=== PATIENT | female | born 1960 | race Caucasian/White ===

== ENCOUNTER 2016-08-13 07:27 | Emergency (ER) | payer MEDICAID, OTHER ==
[~2016-08-13] VITALS: Ht 157.5 cm; Wt 60.0 kg
[~2016-08-13 07:27] MED LIST: BUME0.5T; CITA10SO PO; DIAZ10 PO; SEROQUIL PO; TRAZ100T50 PO
[2016-08-13 07:30] VITALS: BP 175/86; PULSE 90; RESP 16; O2SAT 97
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
[2016-08-13] MEDS ORDERED: CELE20TA PO (07:36)
[2016-08-13] MEDS ORDERED: TYLETAB34 PO (07:40)
[2016-08-13] MEDS ORDERED: DIAZ10 PO (07:40)
[2016-08-13] MEDS ORDERED: IBUPROFEN 600 MG TAB PO ONE (08:00)
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
[2016-08-13] MEDS ORDERED: IBUP400T20 PO (09:02)
[2016-08-13 09:25] VITALS: RESP 16
== END 2016-08-13 09:43 | disposition home or self-care (01) ==
LOC: NEPC 07:27
DX: S00.93XA Contusion of unspecified part of head, initial encounter (principal); M47.812 Spondylosis without myelopathy or radiculopathy, cervical region; V78.4XXA Person boarding or alighting from bus injured in noncollision transport accident, initial encounter; Y93.01 Activity, walking, marching and hiking; Y92.811 Bus as the place of occurrence of the external cause; J45.909 Unspecified asthma, uncomplicated; F17.210 Nicotine dependence, cigarettes, uncomplicated
CPT/HCPCS: 70450; 72125

== ENCOUNTER 2016-11-24 00:45 | Emergency (ER) | payer MEDICAID ==
[~2016-11-24] VITALS: Ht 157.5 cm; Wt 48.0 kg
[~2016-11-24 00:45] MED LIST changes: -BUME0.5T; +CELE20TA PO; -CITA10SO PO; +IBUP400T20 PO; -SEROQUIL PO; -TRAZ100T50 PO; +TYLETAB34 PO
[2016-11-24 00:47] VITALS: BP 124/76; PULSE 83; RESP 16; TEMP 98.7; O2SAT 97
== END 2016-11-24 01:30 | disposition left against medical advice (07) ==
LOC: NEDAMB 00:45
DX: Z02.89 Encounter for other administrative examinations (principal)
CPT/HCPCS: 99281

== ENCOUNTER 2017-01-01 00:16 | Emergency (ER) | payer MEDICAID ==
[~2017-01-01] VITALS: Ht 160 cm; Wt 46.0 kg
[2017-01-01 00:23] VITALS: BP 113/82; PULSE 92; RESP 18; TEMP 98.1; O2SAT 100
[2017-01-01] MEDS ORDERED: SODIUM CHLOR 0.9% 1000 ML INJ 1,000 ML IV ONE (00:45)
[2017-01-01] MEDS ORDERED: THIAMINE INJ 100 MG in SODIUM CHLORIDE 0.9% INJ 100 ML IV ONE (00:45)
--- NOTE | 2017-01-01 01:22 | RADRPT ---
EXAM DATE/TIME: 01/01/2017 00:51 [facility] COMPARISON: No previous studies available for comparison. INDICATIONS : Fall. Chest pain. MEDICAL HISTORY : None. SURGICAL HISTORY : None. ENCOUNTER: Initial ACUITY: 1 day PAIN SCORE: 0/10 LOCATION: Bilateral chest FINDINGS: A single view of the chest demonstrates the lungs to be symmetrically aerated without evidence of mas s, infiltrate or effusion. The cardiomediastinal contours are unremarkable. Osseous structures are intact. CONCLUSION: No evidence of acute cardiopulmonary disease. Harrison Duenas MD on January 01, 2017 at 1:20 Board Certified Radiologist. This report was verified electronically.
--- NOTE | 2017-01-01 01:23 | RADRPT ---
EXAM DATE/TIME: 01/01/2017 00:56 [facility] COMPARISON: No previous studies available for comparison. INDICATIONS : Fall. MEDICAL HISTORY : None. SURGICAL HISTORY : None. ENCOUNTER: Initial ACUITY: 1 day PAIN SCORE: 0/10 LOCATION: Bilateral pelvis FINDINGS: A single frontal view of the pelvis demonstrates no evidence of fracture. The bony pelvic ring is in tact. Bony mineralization is normal. The soft tissues are intact. CONCLUSION: Intact pelvis. Harrison Duenas MD on January 01, 2017 at 1:21 Board Certified Radiologist. This report was verified electronically.
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
[2017-01-01 01:35] VITALS: BP 113/82; PULSE 90; RESP 18; TEMP 98.1; O2SAT 95
[2017-01-01 01:42] LABS: AUTOMATED NEUTROPHIL # 2.7 TH/MM3 (1.8-7.7); BASOPHIL # 0.1 TH/MM3 (0-0.2); BASOPHIL % 1.4 % (0.0-2.0); EOSINOPHIL # 0.1 TH/MM3 (0-0.4); EOSINOPHIL % 1.6 % (0.0-4.0); HEMO FLAGS DIFF FINAL; LYMPHOCYTE # 2.7 TH/MM3 (1.0-4.8); MEAN CELL VOLUME 88.3 FL (80.0-100.0); MEAN CORPUSCULAR HEMOGLOBIN 29.8 PG (27.0-34.0); MEAN CORPUSCULAR HGB CONC 33.7 % (32.0-36.0); PLATELET COUNT 275 TH/MM3 (150-450); RED BLOOD COUNT 4.41 MIL/MM3 (4.00-5.30); RED CELL DISTRIBUTION WIDTH 14.8 % (11.6-17.2); WHITE BLOOD COUNT 5.9 TH/MM3 (4.0-11.0)
[2017-01-01 01:53] LABS: APTT (PATIENT) 25.9 SEC (24.3-30.1); INTERNATIONAL NORMALIZED RATIO 1.1 RATIO; PROTHROMBIN TIME - PATIENT 11.8 SEC (9.8-11.6)
[2017-01-01 01:56] LABS: POTASSIUM 3.4 MEQ/L (3.5-5.1)
[2017-01-01] MEDS ORDERED: IOHEXOL 350 MG/ML 10 ML VIAL (for RAD DIAG) IV ONE (02:36)
--- NOTE | 2017-01-01 02:52 | RADRPT ---
EXAM DATE/TIME: 01/01/2017 02:33 [facility] COMPARISON: CT BRAIN W/O CONTRAST, August 13, 2016, 8:19. INDICATIONS : Trauma; fall. ETOH RADIATION DOSE: 41.39 CTDIvol (mGy) MEDICAL HISTORY : Cerebrovascular disease. Diverticulitis. SURGICAL HISTORY : Appendectomy. Hysterectomy. ENCOUNTER: Initial ACUITY: 1 day PAIN SCALE: Non-responsive LOCATION: cranial TECHNIQUE: Multiple contiguous axial images were obtained of the head. Using automated exposure control and adj ustment of the mA and/or kV according to patient size, radiation dose was kept as low as reasonably a chievable to obtain optimal diagnostic quality images. FINDINGS: CEREBRUM: The ventricles are normal for age. No evidence of midline shift, mass lesion, hemorrhage or acute in farction. No extra-axial fluid collections are seen. POSTERIOR FOSSA: The cerebellum and brainstem are intact. The 4th ventricle is midline. The cerebellopontine angle i s unremarkable. EXTRACRANIAL: The visualized portion of the orbits is intact. SKULL: The calvaria is intact. No evidence of skull fracture. CONCLUSION: Negative noncontrast head CT. Harrison Duenas MD on January 01, 2017 at 2:49 Board Certified Radiologist. This report was verified electronically.
--- NOTE | 2017-01-01 03:01 | RADRPT ---
EXAM DATE/TIME: 01/01/2017 02:33 [facility] COMPARISON: CT CERVICAL SPINE W/O CONTRAST, August 13, 2016, 8:19. INDICATIONS : Trauma; fall. ETOH RADIATION DOSE: 21.27 CTDIvol (mGy) MEDICAL HISTORY : Cerebrovascular disease. Diverticulitis. SURGICAL HISTORY : Appendectomy. Hysterectomy. ENCOUNTER: Initial ACUITY: 1 day PAIN SCALE: Non-responsive LOCATION: neck TECHNIQUE: Volumetric scanning of the cervical spine was performed. Multiplanar reconstructions in the sagittal, coronal and oblique axial planes were performed. Using automated exposure control and adjustment o f the mA and/or kV according to patient size, radiation dose was kept as low as reasonably achievable to obtain optimal diagnostic quality images. FINDINGS: There are a few millimeters of chronic/degenerative retrolisthesis at C4/C5. No fracture or acute-kevin earing malalignment seen in the cervical spine. Vertebral bodies have normal height. Disc space narrowing with uncovertebral and facet osteoarthritis again noted, moderate at C4/C5 and m ild at C5/C6 and C6/C7. Subcentimeter lucency in the right side of C7 vertebral body is unchanged, mo st likely degenerative. CONCLUSION: No fracture or subluxation of the cervical spine. Chronic findings as above, unchanged. Harrison Duenas MD on January 01, 2017 at 2:56 Board Certified Radiologist. This report was verified electronically.
--- NOTE | 2017-01-01 03:02 | RADRPT ---
EXAM DATE/TIME: 01/01/2017 02:39 [facility] COMPARISON: No previous studies available for comparison. INDICATIONS : Trauma; fall. ETOH IV CONTRAST: 98 cc Omnipaque 350 (iohexol) IV ; Cumulative dose for multiple exams. RADIATION DOSE: 4.83 CTDIvol (mGy) ; Combined studies - Thorax/Abdomen/Pelvis MEDICAL HISTORY : Cerebrovascular disease. Diverticulitis. SURGICAL HISTORY : Appendectomy. Hysterectomy. ENCOUNTER: Initial ACUITY: 1 day PAIN SCALE: Non-responsive LOCATION: chest TECHNIQUE: Volumetric scanning of the chest was performed. Using automated exposure control and adjustment of t he mA and/or kV according to patient size, radiation dose was kept as low as reasonably achievable to obtain optimal diagnostic quality images. FINDINGS: LUNGS: There is no consolidation or pneumothorax. No concerning pulmonary nodule is visualized. PLEURA: There is no pleural thickening or pleural effusion. MEDIASTINUM: The heart and great vessels demonstrate no acute abnormality. There is no mediastinal or hilar lymph adenopathy. AXILLAE: Within normal limits. No lymphadenopathy. SKELETAL: Within normal limits for patient age. MISCELLANEOUS: The visualized upper abdominal organs demonstrate no acute abnormality. CONCLUSION: No acute abnormality of the chest. Harrison Duenas MD on January 01, 2017 at 3:00 Board Certified Radiologist. This report was verified electronically.
--- NOTE | 2017-01-01 03:04 | RADRPT ---
EXAM DATE/TIME: 01/01/2017 02:39 [facility] COMPARISON: No previous studies available for comparison. INDICATIONS : Trauma; fall. ETOH IV CONTRAST: 98 cc Omnipaque 350 (iohexol) IV ; Cumulative dose for multiple exams. ORAL CONTRAST: No oral contrast ingested. RADIATION DOSE: 4.83 CTDIvol (mGy) ; Combined studies - Thorax/Abdomen/Pelvis MEDICAL HISTORY : Cerebrovascular disease. Diverticulitis. SURGICAL HISTORY : Appendectomy. Hysterectomy. ENCOUNTER: Initial ACUITY: 1 day PAIN SCALE: Non-responsive LOCATION: abdomen TECHNIQUE: Volumetric scanning of the abdomen and pelvis was performed. Using automated exposure control and ad justment of the mA and/or kV according to patient size, radiation dose was kept as low as reasonably achievable to obtain optimal diagnostic quality images. FINDINGS: LOWER LUNGS: The visualized lower lungs are clear. LIVER: Homogeneous density without lesion. There is no dilation of the biliary tree. Previous cholecystecto my. SPLEEN: Normal size without lesion. PANCREAS: Within normal limits. KIDNEYS: 18 mm cyst right upper pole. ADRENAL GLANDS: Within normal limits. VASCULAR: There is no aortic aneurysm. BOWEL/MESENTERY: The stomach, small bowel, and colon demonstrate no acute abnormality. There is no free intraperitone al air or fluid. ABDOMINAL WALL: Within normal limits. RETROPERITONEUM: There is no lymphadenopathy. BLADDER: No wall thickening or mass. REPRODUCTIVE: Within normal limits. INGUINAL: There is no lymphadenopathy or hernia. MUSCULOSKELETAL: There is an old, healed fracture posteriorly of the left 10th rib. No acute bony abnormality demonstr ated. CONCLUSION: No acute abnormality of the abdomen and pelvis. Harrison Duenas MD on January 01, 2017 at 3:01 Board Certified Radiologist. This report was verified electronically.
--- NOTE | 2017-01-01 03:08 | RADRPT ---
EXAM DATE/TIME: 01/01/2017 02:39 [facility] COMPARISON: No previous studies available for comparison. INDICATIONS : Trauma; fall. ETOH RADIATION DOSE: CTDIvol (mGy) ; Reconstructed from previous dataset MEDICAL HISTORY : Cerebrovascular disease. Diverticulitis. SURGICAL HISTORY : Abdominal aortic aneurysm repair. Hysterectomy. ENCOUNTER: Initial ACUITY: 1 day PAIN SCALE: Non-responsive LOCATION: upper back TECHNIQUE: Volumetric scanning of the thoracic spine was performed. Multiplanar reconstructions in the sagittal , coronal and oblique axial planes were performed. Using automated exposure control and adjustment o f the mA and/or kV according to patient size, radiation dose was kept as low as reasonably achievable to obtain optimal diagnostic quality images. FINDINGS: Slight gradual dextro convex curvature noted of the thoracic spine. The thoracic kyphosis is also sli ghtly exaggerated. There are no subluxations. No cortical break or trabecular disruption. Mild disc space narrowing seen essentially throughout. Small, chronic Schmorl's node changes are seen at each level from T7/T8-T12/L1. There is a small, broad but mainly right paracentral disc osteophyt e complex at T11/T12, combined with mild to moderate facet osteoarthritis contributes to mild to mode rate right and mild left foraminal stenosis. There is mild to moderate spinal stenosis at this level as well, eccentric towards the right. CONCLUSION: 1. No fracture or subluxation of the thoracic spine. 2. Degenerative changes as above. Right paracentral disc osteophyte complex and facet osteoarthritis at T11/T12 contribute to mild to moderate spinal stenosis and mild to moderate right, mild left violet inal stenosis. Harrison Duenas MD on January 01, 2017 at 3:03 Board Certified Radiologist. This report was verified electronically.
[2017-01-01 03:11] VITALS: BP 110/63; PULSE 87; RESP 18; O2SAT 95
--- NOTE | 2017-01-01 03:11 | RADRPT ---
EXAM DATE/TIME: 01/01/2017 02:39 [facility] COMPARISON: No previous studies available for comparison. INDICATIONS : Trauma; fall. RADIATION DOSE: CTDIvol (mGy) ; Reconstructed from previous dataset MEDICAL HISTORY : Cerebrovascular disease. Diverticulitis. SURGICAL HISTORY : Appendectomy. Hysterectomy. ENCOUNTER: Initial ACUITY: 1 day PAIN SCALE: Non-responsive LOCATION: lower back TECHNIQUE: Volumetric scanning of the lumbar spine was performed. Multiplanar reconstructions in the sagittal, coronal and oblique axial planes were performed. Using automated exposure control and adjustment of the mA and/or kV according to patient size, radiation dose was kept as low as reasonably achievable t o obtain optimal diagnostic quality images. FINDINGS: No subluxation of the lumbar spine. No cortical break or trabecular disruption. Vertebral bodies have normal height. Chronic Schmorl's node changes are seen of the superior endplates of L1 and L3 and th e inferior endplate of L2. Multilevel disc space narrowing noted, moderate at L3/L4 and L4/L5, mild at the other levels. There i s mild to moderate bilateral facet osteoarthritis essentially throughout. Mild bilateral foraminal st enosis seen at L4/L5 and L5/S1. No significant spinal stenosis demonstrated. CONCLUSION: Intact lumbar spine. Chronic findings as above. Harrison Duenas MD on January 01, 2017 at 3:07 Board Certified Radiologist. This report was verified electronically.
[2017-01-01] MEDS ORDERED: ACETAMINOPHEN 325 MG TAB PO ONE (03:45)
[2017-01-01] MEDS ORDERED: DIPHTH/TETANUS/ACEL PERTUSSIS (BOOSTER) 0.5 ML VIAL/PFS IM ONE (03:45)
[2017-01-01] MEDS ORDERED: ceFAZolin 2 GM PREMIX 50 ML IV ONE (03:45)
[2017-01-01] MEDS ORDERED: POTASSIUM CHLORIDE 10 MEQ CONTROLLED RELEASE TAB PO ONE (04:00)
== END 2017-01-01 07:11 | disposition home or self-care (01) ==
LOC: NEPE 00:16
DX: S00.81XA Abrasion of other part of head, initial encounter (principal); S00.83XA Contusion of other part of head, initial encounter; F10.929 Alcohol use, unspecified with intoxication, unspecified; J45.909 Unspecified asthma, uncomplicated; F17.210 Nicotine dependence, cigarettes, uncomplicated; R00.0 Tachycardia, unspecified; Z85.118 Personal history of other malignant neoplasm of bronchus and lung; Z86.73 Personal history of transient ischemic attack (TIA), and cerebral infarction without residual deficits
CPT/HCPCS: 70450; 71010; 71260; 72125; 72128; 72131; 72170; 74177; 80048; 80307; 85025; 85610; 85730; 96374; 99285; J3411; J7030; Q9967

== ENCOUNTER → 2017-06-18 | Outpatient (CLI) | payer MEDICAID ==
[~2017-06-18] MED LIST changes: +IBUP1TAB5 PO; -IBUP400T20 PO
--- NOTE | 2017-06-19 07:45 | MG ---
cc: SAMRA SALAS MD Lab No: Date: : 1960 Sex: F MEDICAL HISTORY Asthma, COPD, hypertension, diabetes, diverticulitis, hypercholesterolemia. The patient presented with a sharp pain on the right side of the head and memory loss. MEDICATIONS Alprazolam, hydroxyzine, ProAir, Symbicort, trazodone, venlafaxine, zolpidem, Xanax. DESCRIPTION During the beginning of the EEG recording, the background activity was 8-9 Hz alpha, located posteriorly with excess beta activity. During the recording there was transition but there was dropout of the background activity replaced by beta activity with transition to stage II sleep with the appearance of K-complexes and sleep spindles during a large portion of the EEG recording. There were no electrographic seizures or epileptiform discharges noted. Hyperventilation did not make a change in the EEG recording. Photic stimulation did not elicit a driving response. There were no electrographic seizures or epileptiform discharges seen during the recording. INTERPRETATION This is an awake and sleep EEG. Beta activity is a nonspecific finding that may indicate medication adverse effect like benzodiazepines and barbiturates. No electrographic seizures and no ictal activity. Clinical correlation is recommended. MD ALVARO Delgado/JUN /9:07 PM /7:29 AM MTDThao
== END ==
LOC: HEEG 06:16
DX: S09.90XA Unspecified injury of head, initial encounter (principal); E53.8 Deficiency of other specified B group vitamins; R51 Headache; R41.3 Other amnesia; E07.9 Disorder of thyroid, unspecified; X58.XXXA Exposure to other specified factors, initial encounter
CPT/HCPCS: 95819